=== PATIENT | male | born 1995 | race African-American/Black ===

== ENCOUNTER 2018-01-13 20:38 | Emergency (ER) | payer MEDICAID | END 2018-01-13 23:00 | disposition left against medical advice (07) | LOC: ER 22:33 | DX: R22.9 Localized swelling, mass and lump, unspecified (principal); Z53.21 Procedure and treatment not carried out due to patient leaving prior to being seen by health care provider ==

== ENCOUNTER 2018-08-10 23:53 | Emergency (ER) | payer MEDICAID | END 2018-08-11 00:08 | disposition left against medical advice (07) | LOC: ER 23:53 | DX: Z53.21 Procedure and treatment not carried out due to patient leaving prior to being seen by health care provider (principal) ==